=== PATIENT | male | born 1980 | race Caucasian/White ===

== ENCOUNTER 2017-02-06 20:52 | Emergency (ER) | payer SELFPAY ==
[2017-02-06] MEDS ORDERED: Lidocaine 1% 30 ML SDV INJECT ONE (20:57)
[2017-02-06 20:59] VITALS: BP 143/90
--- NOTE | 2017-02-06 21:01 | EDM.PDOC ---
ED HPI GENERAL MEDICAL PROBLEM - General Chief Complaint: Laceration Stated Complaint: CUT FINGER Time Seen by Provider: 02/06/17 20:57 Source of Information: Reports: Patient History Limitations: Reports: No Limitations - History of Present Illness INITIAL COMMENTS - FREE TEXT/NARRATIVE: cut [employer] Left 3-Middle finger Pain Score (Numeric/FACES): 7 - Related Data Allergies Allergy/AdvReac Type Severity Reaction Status Date / Time No Known Allergies Allergy Verified 02/06/17 20:59 Home Meds: Home Meds . [No Known Home Meds] 02/06/17 [History] Past Medical History HEENT History: Reports: Impaired Vision Psychiatric History: Reports: Depression Endocrine/Metabolic History: Reports: Hypoparathyroidism, Other (See Below) Other Endocrine/Metabolic History: removal of pituatary gland - Infectious Disease History Infectious Disease History: Reports: Chicken Pox - Past Surgical History Endocrine Surgical History: Reports: Other (See Below) Neurological Surgical History: Reports: Other (See Below) Social & Family History - Family History Family Medical History: Noncontributory - Tobacco Use Smoking Status *Q: Current Every Day Smoker Years of Tobacco use: 20 Packs/Tins Daily: 3 Second Hand Smoke Exposure: Yes - Caffeine Use Caffeine Use: Reports: None - Recreational Drug Use Recreational Drug Use: Yes Drug Use in Last 12 Months: Yes Recreational Drug Type: Reports: Marijuana/Hashish Recreational Drug Use Frequency: Daily Recreational Drug Last Use: 08-12-15 ED ROS GENERAL - Review of Systems Review Of Systems: ROS reveals no pertinent complaints other than HPI. ED EXAM, SKIN/RASH Exam: See Below Exam Limited By: No Limitations General Appearance: Alert, WD/WN, Mild Distress, Other (tearful) Ears: Hearing Grossly Normal Throat/Mouth: Normal Voice, No Airway Compromise Head: Atraumatic Neck: Non-Tender, Full Range of Motion Respiratory/Chest: No Respiratory Distress Cardiovascular: Regular Rate, Rhythm GI/Abdominal: Soft, Non-Tender Extremities: Other (left 3rd 1/2" lac', noraml ROM, NV wnl) Neurological: Alert, Oriented, Normal Cognition, Normal Gait, No Motor/Sensory Deficits Psychiatric: Tearful Skin: Warm, Dry, Normal Color Location, Skin: Upper Extremity, Left Lymphatic: No Adenopathy ED SKIN PROCEDURES - Laceration/Wound Repair Left Finger Lac/Wound length In cm: 1 (lqft 2rd dip) Appearance: Subcutaneous, Linear, Clean Distal NVT: Neuro & Vascular Intact, No Tendon Injury Anesthetic Type: Local Local Anesthesia - Lidocaine (Xylocaine): 1% Plain Local Anesthetic Volume: 5cc Skin Prep: Chlorhexidine (Hibiciens) Saline Irrigation (cc's): 20 Exploration/Debridement/Repair: Wound Explored, In a Bloodless Field, No Foreign Material Found Closed with: Sutures Suture Size: 3-0 Suture Type: Nylon, Interrupted Sterile Dressing Applied: Provider Tetanus Status Addressed: Yes Complications: No Course - Vital Signs Last Recorded V/S: Last Vital Signs Temp 36.1 C 02/06/17 20:56 Pulse 90 02/06/17 20:56 Resp 18 02/06/17 20:56 BP 143/90 H 02/06/17 20:56 Pulse Ox 97 02/06/17 20:56 - Orders/Labs/Meds Meds: Medications Discontinued Medications Generic Name Dose Route Start Last Admin Trade Name Freq PRN Reason Stop Dose Admin Lidocaine HCl 30 ml 02/06/17 20:57 02/06/17 21:07 Xylocaine-Mpf 1% INJECT 02/06/17 20:58 30 ml ONETIME ONE Administration Departure - Departure Time of Disposition: 21:41 Disposition: Home, Self-Care 01 Condition: Good Clinical Impression: Finger laceration Qualifiers: Encounter type: initial encounter Finger: middle finger Damage to nail status: without damage Foreign body presence: without foreign body Laterality: left Qualified Code(s): S61.213A - Laceration without foreign body of left middle finger without damage to nail, initial encounter - Discharge Information Instructions: Laceration Care, Adult, [id number] Forms: ED Department Discharge Additional Instructions: 1) keep wound clean dry covered 2) wound check Wednesday 3) suture removal 10 days
== END 2017-02-06 21:44 | disposition home or self-care (01) ==
LOC: DL.ED 20:52
DX: S61.213A Laceration without foreign body of left middle finger without damage to nail, initial encounter (principal); H54.7 Unspecified visual loss; F17.210 Nicotine dependence, cigarettes, uncomplicated; W26.0XXA Contact with knife, initial encounter
CPT/HCPCS: 12001; 99282

== ENCOUNTER 2020-07-15 14:44 | Emergency (ER) | payer SELFPAY ==
[2020-07-15 15:38] VITALS: BP 125/90; PULSE 76
--- NOTE | 2020-07-15 16:47 | EDM.PDOC ---
<Phillip Hollingsworth Viet - Last Filed: 07/15/20 16:42> ED HPI GENERAL MEDICAL PROBLEM - General Chief Complaint: ENT Problem Stated Complaint: LEFT SIDE FACE SWOLLEN, INFECTED Time Seen by Provider: 07/15/20 16:42 Source of Information: Reports: Patient History Limitations: Reports: No Limitations - History of Present Illness INITIAL COMMENTS - FREE TEXT/NARRATIVE: 40 y/o M c/o L lower tooth pain since this morning. Pt states he woke up with the pain and swelling to the left side of his face. Pt does not have a dentist because he has no insurance. Hx of pituitary removal but has not been compliant with his medications for seven years. Denies fever, cough, chills, drugs, etoh. Onset: Today Duration: Hour(s): Location: Reports: Head Quality: Reports: Ache Severity: Mild Improves with: Reports: None Worsens with: Reports: None Associated Symptoms: Reports: No Other Symptoms Left Lower Gums Pain Score (Numeric/FACES): 9 - Related Data Allergies Allergy/AdvReac Type Severity Reaction Status Date / Time No Known Allergies Allergy Verified 07/15/20 15:37 Home Meds: Home Meds . [No Known Home Meds] 02/06/17 [History] Past Medical History HEENT History: Reports: Impaired Vision Psychiatric History: Reports: Depression Endocrine/Metabolic History: Reports: Hypoparathyroidism, Other (See Below) Other Endocrine/Metabolic History: removal of pituatary gland. pituatary adinoma - Infectious Disease History Infectious Disease History: Reports: Chicken Pox - Past Surgical History Endocrine Surgical History: Reports: Other (See Below) Other Endocrine Surgeries/Procedures: "pituitary removed" Neurological Surgical History: Reports: Other (See Below) Other Neurological Surgeries/Procedures: removal of brain tumor Social & Family History - Family History Family Medical History: No Pertinent Family History - Tobacco Use Tobacco Use Status *Q: Never Tobacco User Second Hand Smoke Exposure: No - Caffeine Use Caffeine Use: Reports: None - Recreational Drug Use Recreational Drug Use: Yes Drug Use in Last 12 Months: Yes Recreational Drug Type: Reports: Marijuana/Hashish ED ROS ENT - Review of Systems Review Of Systems: Comprehensive ROS is negative, except as noted in HPI. ED EXAM, ENT - Physical Exam Exam: See Below Exam Limited By: No Limitations General Appearance: Alert, WD/WN, No Apparent Distress Ears: Normal External Exam, Normal Canal, Hearing Grossly Normal, Normal TMs Nose: Normal Inspection, Normal Mucousa, No Blood Mouth/Throat: Other (fractured 18 molar. Poor oral hygien throughout.) Head: Atraumatic, Normocephalic, Other (Left side facial swelling) Neck: Normal Inspection, Supple, Non-Tender, Full Range of Motion Departure - Departure Time of Disposition: 16:58 Disposition: Home, Self-Care 01 Condition: Good Clinical Impression: Pain, dental - Discharge Information *PRESCRIPTION DRUG MONITORING PROGRAM REVIEWED*: Not Applicable *COPY OF PRESCRIPTION DRUG MONITORING REPORT IN PATIENT ZAFAR: Not Applicable Instructions: Benzocaine mouth gel, ointment, solution, or dental paste Forms: ED Department Discharge Additional Instructions: Follow up with a dentist as soon as possible. Establish care with a primary provider to manage your pituitary hormone replacements. If any new symptoms or concerns develop establish care with a primary care provider or return to the er. Sepsis Event Note (ED) - Evaluation Sepsis Screening Result: No Definite Risk <Judson Rockwell - Last Filed: 07/15/20 17:21> Course - Vital Signs Last Recorded V/S: Last Vital Signs Temp 36.6 C 07/15/20 15:32 Pulse 76 07/15/20 15:32 Resp 18 07/15/20 15:32 BP 125/90 07/15/20 15:32 Pulse Ox 94 L 07/15/20 15:32 - Orders/Labs/Meds Meds: Medications Discontinued Medications Generic Name Dose Route Start Last Admin Trade Name Freq PRN Reason Stop Dose Admin Lidocaine HCl 15 ml 07/15/20 16:49 07/15/20 16:59 Xylocaine 2% Viscous PO 07/15/20 16:50 Not Given ONETIME ONE Lidocaine HCl 15 ml 07/15/20 16:51 07/15/20 16:58 Xylocaine 2% Viscous PO 07/15/20 16:52 15 ml ONETIME ONE Administration - Re-Assessments/Exams Free Text/Narrative Re-Assessment/Exam: 07/15/20 17:21 I have examined the patient. I have discussed findings and treatment plan with the PA student. I agree with the assessment and plan in the following students note. Sepsis Event Note (ED) - Focused Exam Vital Signs: Vital Signs Temp Pulse Resp BP Pulse Ox 07/15/20 15:32 36.6 C 76 18 125/90 94 L
[2020-07-15] MEDS ORDERED: Lidocaine 2% Viscous Solution 15 ML Cup PO ONE ×2 (16:49→16:51)
== END 2020-07-15 17:36 | disposition home or self-care (01) ==
LOC: DL.ED 14:44
DX: K08.89 Other specified disorders of teeth and supporting structures (principal)
CPT/HCPCS: 99282; A9270-GY

== ENCOUNTER 2021-05-22 23:10 | Emergency (ER) | payer SELFPAY ==
--- NOTE | 2021-05-22 23:55 | EDM.PDOC ---
ED HPI GENERAL MEDICAL PROBLEM - General Chief Complaint: Back Pain or Injury Stated Complaint: LOWER BACK HURTS PAIN Time Seen by Provider: 05/22/21 23:52 Source of Information: Reports: Patient History Limitations: Reports: No Limitations - History of Present Illness INITIAL COMMENTS - FREE TEXT/NARRATIVE: 41 y/o M c/o low back pain afer falling while shoveling snow on Wednesday. Pt states he fell backwards onto his back and now has point tenderness on his spine about L4. No LOC. NO other injury. 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 Pt is supposed to be on testosterone, levothyroxine, and steriods but cannot afford them. No other complaints. otehr than back pain Right Lower Back Pain Score (Numeric/FACES): 12 - Related Data Allergies Allergy/AdvReac Type Severity Reaction Status Date / Time No Known Allergies Allergy Verified 05/23/21 00:01 Home Meds: Home Meds . [No Known Home Meds] 02/06/17 [History] Past Medical History HEENT History: Reports: Impaired Vision Psychiatric History: Reports: Depression Endocrine/Metabolic History: Reports: Hypoparathyroidism, Other (See Below) Other Endocrine/Metabolic History: removal of pituatary gland. pituatary adinoma - Infectious Disease History Infectious Disease History: Reports: Chicken Pox - Past Surgical History Endocrine Surgical History: Reports: Other (See Below) Other Endocrine Surgeries/Procedures: "pituitary removed" Neurological Surgical History: Reports: Other (See Below) Other Neurological Surgeries/Procedures: removal of brain tumor Social & Family History - Family History Family Medical History: No Pertinent Family History - Caffeine Use Caffeine Use: Reports: None ED ROS GENERAL - Review of Systems Review Of Systems: Comprehensive ROS is negative, except as noted in HPI. ED EXAM,LOWER BACK PAIN/INJURY - Physical Exam Exam: See Below Exam Limited By: No Limitations General Appearance: Alert, Mild Distress Head: Atraumatic, Normocephalic Neck: Normal Inspection, Supple, Non-Tender, Full Range of Motion Respiratory/Chest: No Respiratory Distress, Lungs Clear, Normal Breath Sounds, No Accessory Muscle Use, Chest Non-Tender Cardiovascular: Normal Peripheral Pulses, Regular Rate, Rhythm, No Edema, No Gallop, No JVD, No Murmur, No Rub GI/Abdominal: Soft, Non-Tender (Male) Exam: Deferred Rectal (Males) Exam: Deferred Back Exam: Other (point tenderness L4 no stepoffs or creptius.) Extremities: Normal Inspection, Normal Range of Motion, Non-Tender, No Pedal Edema, Normal Capillary Refill, Other (ambulatory ) Neurological: Alert, Normal Mood/Affect, Normal Dorsiflexion, CN II-XII Intact, Normal Plantar Flexion, Normal Gait, Normal Reflexes, No Motor/Sensory Deficits, Oriented x 3 Psychiatric: Normal Affect, Normal Mood Skin Exam: Warm, Dry, Intact Course - Vital Signs Last Recorded V/S: Last Vital Signs Temp 97.8 F 05/22/21 23:20 Pulse 85 05/22/21 23:20 Resp 16 05/22/21 23:20 BP 138/97 H 05/22/21 23:20 Pulse Ox 95 05/22/21 23:20 - Orders/Labs/Meds Orders: Active Orders 24 hr Category Date Time Status Lumbar Spine 2 or 3V [CR] Urgent Exams 05/22/21 23:50 Taken Meds: Medications Discontinued Medications Generic Name Dose Route Start Last Admin Trade Name Shan PRN Reason Stop Dose Admin Ketorolac Tromethamine 30 mg 05/23/21 00:11 05/23/21 00:20 Ketorolac 30 Mg/Ml Sdv IM 05/23/21 00:12 30 mg ONETIME ONE Administration - Re-Assessments/Exams Free Text/Narrative Re-Assessment/Exam: 05/23/21 00:29 I discussed the xray and lab findings with the pt and explained the results. He has no questions and feels better after the toradol shot. Departure - Departure Time of Disposition: 00:35 Disposition: Home, Self-Care 01 Condition: Good Clinical Impression: Low back pain, unspecified Qualifiers: Chronicity: acute Back pain laterality: midline Sciatica presence: without sciatica Qualified Code(s): M54.50 - Low back pain, unspecified - Discharge Information *PRESCRIPTION DRUG MONITORING PROGRAM REVIEWED*: Not Applicable *COPY OF PRESCRIPTION DRUG MONITORING REPORT IN PATIENT ZAFAR: Not Applicable Instructions: Acute Back Pain, Adult Forms: ED Department Discharge Additional Instructions: Use tylenol and ibuprofen for pain as needed. Avoid strenuous activity for one week. If symptoms do not resolve in a week to 10 days contact your primary care facility or return to the ER. [facility] for medical insurance. Consider contacting Lashanda Daniels she is the eligibly/ enrollment services/ pt advocate here at the [facility] [phone]. She may e able to help you find affordable insurance. Sepsis Event Note (ED) - Focused Exam Vital Signs: Vital Signs Temp Pulse Resp BP Pulse Ox 05/22/21 23:20 97.8 F 85 16 138/97 H 95 - My Orders Last 24 Hours: My Active Orders 05/22/21 23:50 Lumbar Spine 2 or 3V [CR] Urgent - Assessment/Plan Last 24 Hours: My Active Orders 05/22/21 23:50 Lumbar Spine 2 or 3V [CR] Urgent
[2021-05-23 00:01] VITALS: BP 138/97; PULSE 85
[2021-05-23] MEDS ORDERED: Ketorolac 30 MG/ML SDV IM ONE (00:11)
--- NOTE | 2021-05-23 00:37 | CR ---
PROCEDURE INFORMATION: Exam: XR Lumbosacral Spine Exam date and time: 05/22/2021 11:54 PM Age: 41 years old Clinical indication: Other: Pain; Additional info: Poitn tenderness approx l4 after fall TECHNIQUE: Imaging protocol: XR of the lumbosacral spine. Views: 2 or 3 views. COMPARISON: No relevant prior studies available. FINDINGS: Bones/joints: Near anatomic alignment. There are no significant degenerative changes present. No fracture or compression fracture seen. The pedicles are intact. No visible bone destruction. Soft tissues: There is no soft tissue abnormality seen. IMPRESSION: No acute findings.
== END 2021-05-23 01:03 | disposition home or self-care (01) ==
LOC: DL.ED 23:10
DX: M54.50 Low back pain, unspecified (principal)
CPT/HCPCS: 72100; 96372; 99283; J1885

== ENCOUNTER 2021-09-24 18:45 | Emergency (ER) | payer SELFPAY ==
[2021-09-24] MEDS ORDERED: Bacitracin Oint 1 GM U/D Packet TOP ONE (19:37)
[2021-09-24] MEDS ORDERED: Lidocaine 1% 30 ML SDV INJECT ONE (19:37)
[2021-09-24] MEDS ORDERED: Diphtheria,Pertussis(Acell),Tetanus Vaccine 0.5 ML Syringe IM ONE (19:39)
[2021-09-24] MEDS ORDERED: Diphtheria,Pertussis(Acell),Tetanus Vaccine 0.5 ML Syringe ONE (19:42)
[2021-09-24 20:27] VITALS: BP 130/79; PULSE 87
== END 2021-09-24 20:28 | disposition home or self-care (01) ==
LOC: DL.ED 18:45
DX: S61.217A Laceration without foreign body of left little finger without damage to nail, initial encounter (principal); Z23 Encounter for immunization; W26.0XXA Contact with knife, initial encounter
CPT/HCPCS: 12001; 90471; 90715; 99282; 99283

== ENCOUNTER 2022-04-02 07:21 | Day surgery (SDC) | payer SELFPAY ==
[~2022-04-02 07:21] MED LIST: Dextrose 5%-0.45% NaCl 1,000 ML IV SCH; Midazolam 1 MG/ML 2 ML SDV ONE; Sodium Chloride 0.9% 10 ML Syringe FLUSH PRN; Sodium Chloride 0.9% 10 ML Syringe FLUSH SCH; fentaNYL 100 MCG/2 ML SDV ONE
[2022-04-02] MEDS ORDERED: Midazolam 1 MG/ML 2 ML SDV IV ONE ×3 (07:22→07:56)
[2022-04-02] MEDS ORDERED: fentaNYL 100 MCG/2 ML SDV IV ONE ×3 (07:22→07:54)
[2022-04-02 11:39] VITALS: BP 113/77; PULSE 71
== END 2022-04-02 09:45 | disposition home or self-care (01) ==
LOC: DL.ENDO 07:21
PROVIDERS: ATTEND Internal Medicine Gastroenterology
DX: K31.819 Angiodysplasia of stomach and duodenum without bleeding (principal); K31.89 Other diseases of stomach and duodenum; E66.09 Other obesity due to excess calories; D64.9 Anemia, unspecified; Z98.890 Other specified postprocedural states; Z68.36 Body mass index [BMI] 36.0-36.9, adult
CPT/HCPCS: 43239; 87077; J2250; J3010; J7042

== ENCOUNTER 2022-05-05 06:03 | Day surgery (SDC) | payer SELFPAY ==
[~2022-05-05 06:03] MED LIST changes: -Midazolam 1 MG/ML 2 ML SDV ONE; -fentaNYL 100 MCG/2 ML SDV ONE
[2022-05-05] MEDS ORDERED: Midazolam 1 MG/ML 2 ML SDV IV ONE ×4 (06:04→07:12)
[2022-05-05] MEDS ORDERED: fentaNYL 100 MCG/2 ML SDV IV ONE ×3 (06:04→06:59)
[2022-05-05] MEDS ORDERED: Midazolam 1 MG/ML 2 ML SDV ONE (06:43)
[2022-05-05] MEDS ORDERED: fentaNYL 100 MCG/2 ML SDV ONE (06:44)
[2022-05-05 09:31] VITALS: BP 152/88; PULSE 61
== END 2022-05-05 09:00 | disposition home or self-care (01) ==
LOC: DL.ENDO 06:03
PROVIDERS: ATTEND Internal Medicine Gastroenterology
DX: D64.9 Anemia, unspecified (principal); K64.8 Other hemorrhoids; E66.09 Other obesity due to excess calories; Z98.890 Other specified postprocedural states; Z68.37 Body mass index [BMI] 37.0-37.9, adult
CPT/HCPCS: 45378; J2250; J3010; J7042

== ENCOUNTER 2024-05-22 11:54 | Emergency (ER) | payer SELFPAY ==
[2024-05-22 12:13] LABS: O2 DELIVERY DEVICE NASAL CANNULA; PH,VENOUS 7.39 (7.31-7.41)
[2024-05-22 12:14] LABS: BASE EXCESS VENOUS 11.9 mmol/l ((-2)-(+3)); BICARBONATE,VENOUS 39 mmol/l (19-25); O2 SATURATION VENOUS 30 % (60-80); PCO2 VENOUS 67 mmHg (41-51); PO2 VENOUS 26 mmHg (35-42)
[2024-05-22 12:15] LABS: BASOPHILS PERCENT AUTO 0.5 % (0.0-1.0); EOSINOPHILS PERCENT AUTO 5.9 % (1.0-3.0); HEMOGLOBIN 12.3 g/dL (14.0-18.0); LYMPHOCYTES PERCENT AUTO 30.7 % (20.5-50.1); MEAN CORPUSCULAR HEMOGLOBIN 30.7 pg (27.0-34.0); MEAN CORPUSCULAR HGB CONC 31.5 g/dL (33.0-35.0); MEAN CORPUSCULAR VOLUME 97.3 fL (80-100); MONOCYTES PERCENT AUTO 7.5 % (2-8); NEUTROPHILS PERCENT AUTO 55.4 % (42.2-75.2); PLATELET COUNT,PLT 163 10^3/uL (150-450); RED BLOOD CELL COUNT 4.01 10^6/uL (4.6-6.2); WHITE BLOOD CELL COUNT,WBC 3.9 10^3/uL (5.0-10.0)
[2024-05-22 12:36] LABS: B-TYPE NATRIURETIC PEPTIDE,BNP 188 pg/ml (0-100)
[2024-05-22 12:40] LABS: LACTIC ACID < 0.3 mmol/L (0.4-2.0)
[2024-05-22 12:41] LABS: INR 1.1 (0.9-1.2); PROTHROMBIN TIME 11.1 SEC (9.0-12.0); PTT,PARTIAL THROMBOPLSTIN TIME 30.4 SEC (22.0-34.0)
[2024-05-22 12:44] LABS: A/G RATIO 1.1; ALANINE AMINOTRANSFERASE,ALT 29 U/L (16-63); ALKALINE PHOSPHATASE 55 U/L (46-116); ANION GAP 7.9 mEq/L (7-13); ASPARTATE AMNIOTRANSFERASE,AST 80 U/L (15-37); BILIRUBIN TOTAL 0.5 mg/dL (0.2-1.0); BLOOD UREA NITROGEN,BUN 8 mg/dL (7-18); BUN/CREATININE RATIO 6.6 (No establ ref range); C-REACTIVE PROTEIN 1.63 ng/dL (<=0.50); CALCIUM 8.8 mg/dL (8.5-10.1); CARBON DIOXIDE,CO2 39 mmol/L (21-32); CHLORIDE,CL 97 mmol/L (98-107); CREATININE 1.21 mg/dL (0.70-1.30); EST CRCL DRUG DOSING (CG) 83.73 mL/min; GLUCOSE RANDOM 97 mg/dL (70-99); MAGNESIUM 2.3 mg/dL (1.8-2.4); PHOSPHORUS 2.9 mg/dL (2.6-4.7); POTASSIUM,K 4.9 mmol/L (3.5-5.1); PROTEIN TOTAL,TP 7.7 g/dL (6.4-8.2); SODIUM,NA 139 mmol/L (136-145); TSH ULTRASENSITIVE 0.48 uIU/mL (0.36-3.74)
[2024-05-22 12:47] LABS: ESTIMATED GFR 75 mL/min (>=60); ETHANOL BLOOD MEDICAL < 3 mg/dL (0)
[2024-05-22] MEDS: Hydrocortisone Sodium Succinate 100 MG/2 ML SDV IVPUSH ONE (12:53)
[2024-05-22] MEDS: Sodium Chloride 0.9% 10 ML Syringe FLUSH PRN (12:53)
[2024-05-22] MEDS: Iopamidol 612 MG/ML 100 ML Bottle IVPUSH ONE (13:25)
[2024-05-22] MEDS: Levothyroxine 100 MCG Vial IVPUSH ONE (15:40)
[2024-05-22 19:07] LABS: APPEARANCE,URINE CLEAR (CLEAR); BILIRUBIN,URINE NEGATIVE (NEGATIVE); COLOR,URINE YELLOW (YELLOW); GLUCOSE,URINE NEGATIVE (NEGATIVE); KETONES,URINE NEGATIVE (NEGATIVE); LEUKOCYTE ESTERASE,URINE NEGATIVE (NEGATIVE); NITRITE,URINE NEGATIVE (NEGATIVE); OCCULT BLOOD,URINE NEGATIVE (NEGATIVE); PROTEIN,URINE NEGATIVE (NEGATIVE); UROBILINOGEN,URINE 0.2 mg/dL (0.2-1.0)
[2024-05-22 19:12] LABS: AMPHETAMINES,URINE NEGATIVE (NEGATIVE); BARBITURATES,URINE NEGATIVE (NEGATIVE); BENZODIAZEPINE,URINE NEGATIVE (NEGATIVE); MDMA (ECSTASY), URINE NEGATIVE (NEGATIVE); METHADONE,URINE NEGATIVE (NEGATIVE); METHAMPHETAMINES,URINE NEGATIVE (NEGATIVE); OPIATES,URINE NEGATIVE (NEGATIVE); OXYCODONE,URINE NEGATIVE (NEGATIVE); PHENCYCLIDINE,URINE NEGATIVE (NEGATIVE); TCA,URINE NEGATIVE (NEGATIVE)
[2024-05-22 20:43] LABS: O2 DELIVERY DEVICE OM
[2024-05-22 20:48] LABS: PH,VENOUS 7.31 (7.31-7.41)
[2024-05-22 20:50] LABS: BASE EXCESS VENOUS 10.4 mmol/l ((-2)-(+3)); BICARBONATE,VENOUS 40 mmol/l (19-25); O2 SATURATION VENOUS 54 % (60-80); PCO2 VENOUS 81 mmHg (41-51); PO2 VENOUS 39 mmHg (35-42)
[2024-05-22 21:55] LABS: O2 DELIVERY DEVICE BIPAP; PH,VENOUS 7.31 (7.31-7.41)
[2024-05-22 21:57] LABS: BASE EXCESS VENOUS 9.2 mmol/l ((-2)-(+3)); BICARBONATE,VENOUS 38 mmol/l (19-25); O2 SATURATION VENOUS 92.7 % (60-80); PCO2 VENOUS 78 mmHg (41-51); PO2 VENOUS 78 mmHg (35-42)
[2024-05-22 22:35] LABS: O2 DELIVERY DEVICE BIPAP
[2024-05-22 22:36] LABS: BICARBONATE,VENOUS 38 mmol/l (19-25); O2 SATURATION VENOUS 89.7 % (60-80); PCO2 VENOUS 79 mmHg (41-51); PO2 VENOUS 71 mmHg (35-42)
[2024-05-22] MEDS: Furosemide 40 MG/4 ML VIAL IVPUSH ONE (22:57)
[2024-05-23 03:16] LABS: O2 DELIVERY DEVICE BIPAP
[2024-05-23 03:19] LABS: BASE EXCESS VENOUS 10.7 mmol/l ((-2)-(+3)); BICARBONATE,VENOUS 39 mmol/l (19-25); O2 SATURATION VENOUS 89.4 % (60-80); PH,VENOUS 7.35 (7.31-7.41); PO2 VENOUS 64 mmHg (35-42)
[2024-05-23 03:20] LABS: PCO2 VENOUS 73 mmHg (41-51)
[2024-05-23] MEDS: Levothyroxine 150 MCG Tab PO SCH (05:49)
[2024-05-23] MEDS: Albuterol/Ipratropium 3.0-0.5 MG/3 ML Neb Soln NEB ONE (09:00)
[2024-05-23] MEDS: Iopamidol 755 Mg/ML 100 ML Bottle IVPUSH ONE (10:34)
[2024-05-23 10:58] LABS: EST CRCL DRUG DOSING (CG) 77.93 mL/min
[2024-05-23 11:00] LABS: CREATININE 1.3 mg/dL (0.6-1.3)
[2024-05-23 11:19] LABS: CALCIUM 8.6 mg/dL (8.5-10.1)
[2024-05-23] MEDS: Sodium Chloride 0.9% 1,000 ML IV ONE (11:34)
[2024-05-23 12:16] LABS: BASE EXCESS VENOUS 12.8 mmol/l ((-2)-(+3)); BICARBONATE,VENOUS 40 mmol/l (19-25); O2 DELIVERY DEVICE BIPAP; O2 SATURATION VENOUS 48.3 % (60-80); PH,VENOUS 7.37 (7.31-7.41); PO2 VENOUS 32 mmHg (35-42)
[2024-05-23 12:18] LABS: PCO2 VENOUS 71 mmHg (41-51)
[2024-05-23] MEDS: Hydrocortisone Sodium Succinate 100 MG/2 ML SDV IVPUSH ONE (12:41)
[2024-05-23] MEDS: Levothyroxine 100 MCG Vial IVPUSH ONE (12:43)
[2024-05-23] MEDS ORDERED: Water For Injection, Sterile 10 ML ONE (12:45)
[2024-05-23 15:12] VITALS: BP 127/87
[2024-05-23 15:25] VITALS: PULSE 71
== END 2024-05-23 16:00 ==
LOC: DL.ED 11:54
DX: R09.02 Hypoxemia (principal); E03.9 Hypothyroidism, unspecified; K21.9 Gastro-esophageal reflux disease without esophagitis; Z79.899 Other long term (current) drug therapy
CPT/HCPCS: 36415; 70460; 71045; 71275; 80048; 80053; 80305; 80307; 81003; 82140; 82803; 82947; 83605; 83735; 83880; 84100; 84145; 84439; 84443; 84484; 85025; 85610; 85730; 86140; 86850; 86900; 86901; 87040; 87428; 93005; 94660; 96374; 96375; 96376; 99285; A9270; C1758; J0650; J1720; J1940; J7030; Q9967; J7620-GY

== ENCOUNTER 2024-12-21 19:32 | Emergency (ER) | payer SELFPAY ==
[2024-12-21] MEDS ORDERED: Sodium Chloride 0.9% 10 ML Syringe FLUSH PRN (19:35)
[2024-12-21 19:56] LABS: BASOPHILS PERCENT AUTO 0.2 % (0.0-1.0); EOSINOPHILS PERCENT AUTO 0.6 % (1.0-3.0); LYMPHOCYTES PERCENT AUTO 30.3 % (20.5-50.1); MONOCYTES PERCENT AUTO 8.6 % (2-8); NEUTROPHILS PERCENT AUTO 60.3 % (42.2-75.2); PLATELET COUNT,PLT 228 10^3/uL (150-450); RED BLOOD CELL COUNT 4.17 10^6/uL (4.6-6.2); WHITE BLOOD CELL COUNT,WBC 8.8 10^3/uL (5.0-10.0)
[2024-12-21] MEDS: Iopamidol 755 Mg/ML 100 ML Bottle IVPUSH ONE (20:07)
[2024-12-21 20:15] LABS: INR 1.0 (0.9-1.2); PTT,PARTIAL THROMBOPLSTIN TIME 22.2 SEC (22.0-34.0)
[2024-12-21 20:18] LABS: A/G RATIO 1.1; ALANINE AMINOTRANSFERASE,ALT 65 U/L (16-63); ASPARTATE AMNIOTRANSFERASE,AST 46 U/L (15-37); BILIRUBIN TOTAL 0.5 mg/dL (0.2-1.0); BLOOD UREA NITROGEN,BUN 11 mg/dL (7-18); CARBON DIOXIDE,CO2 29 mmol/L (21-32); CHLORIDE,CL 102 mmol/L (98-107); CREATININE 0.89 mg/dL (0.70-1.30); ESTIMATED GFR 107 mL/min (>=60); GLUCOSE RANDOM 120 mg/dL (70-99); POTASSIUM,K 4.2 mmol/L (3.5-5.1); PROTEIN TOTAL,TP 7.6 g/dL (6.4-8.2); SODIUM,NA 140 mmol/L (136-145)
[2024-12-21 20:33] LABS: ETHANOL BLOOD MEDICAL < 3 mg/dL (0)
[2024-12-21 21:23] LABS: APPEARANCE,URINE CLEAR (CLEAR); GLUCOSE,URINE NEGATIVE (NEGATIVE); OCCULT BLOOD,URINE NEGATIVE (NEGATIVE)
[2024-12-21 21:28] LABS: AMPHETAMINES,URINE NEGATIVE (NEGATIVE); BARBITURATES,URINE NEGATIVE (NEGATIVE); MDMA (ECSTASY), URINE NEGATIVE (NEGATIVE); METHAMPHETAMINES,URINE NEGATIVE (NEGATIVE); OPIATES,URINE POSITIVE (NEGATIVE); OXYCODONE,URINE NEGATIVE (NEGATIVE); PHENCYCLIDINE,URINE NEGATIVE (NEGATIVE); TCA,URINE NEGATIVE (NEGATIVE)
[2024-12-21] MEDS: LORazepam 2 MG/ML SDV IVPUSH ONE (22:30)
[2024-12-21 23:13] VITALS: BP 116/82; PULSE 92
== END 2024-12-22 00:04 ==
LOC: DL.ED 19:32
DX: I63.22 Cerebral infarction due to unspecified occlusion or stenosis of basilar artery (principal); K21.9 Gastro-esophageal reflux disease without esophagitis; E03.9 Hypothyroidism, unspecified; Z79.899 Other long term (current) drug therapy
CPT/HCPCS: 36415; 70496; 70498; 80053; 80305; 80307; 81003; 82947; 83690; 83735; 84484; 85025; 85610; 85730; 93005; 96374; 96375; 99285; J2060; J2270; Q9967